=== PATIENT | female | born 2000 | race Caucasian/White ===

== ENCOUNTER → 2020-02-27 15:32 | Outpatient (CLI) | payer OTHER, SELFPAY ==
--- NOTE | ~2020-02-27 | XR_ITS ---
EXAMINATION: XR hip RT 2V w AP pelvis DATE: 02/27/2020 16:15 INDICATION: Right hip pain TECHNIQUE: Anteroposterior view of the pelvis and anteroposterior and frog-leg lateral views of the r ight hip were obtained. COMPARISON: None. FINDINGS: Alignment is normal. No fracture or suspected avascular necrosis. Normal acetabular and femoral head/ neck morphology. Joint spaces are normal. Rectangular lucency likely representing a tampon projecting over the central pelvis. Soft tissues otherwise unremarkable. IMPRESSION: 1. Normal pelvis and right hip radiographs. Reviewed, dictated and finalized at location B.
== END ==
PROVIDERS: Visit Provider Nurse Practitioner
DX: M25.551 Pain in right hip (principal)
CPT/HCPCS: 73502

== ENCOUNTER 2020-04-06 14:11 | Emergency (ER) | payer OTHER, SELFPAY ==
[2020-04-06 14:17] VITALS: BP 121/78; PULSE 65; RESP 14; TEMP 36.2; O2SAT 99
[2020-04-06 15:21] LABS: Add Urine Microscopic? YES; Appearance Urine Clear (Clear); Bacteria Urine 1+ /hpf; Bilirubin Urine Negative (Negative); Blood Urine Negative (Negative); Color Urine Yellow (Yellow); Glucose Urine UA Negative (Negative); Ketones Urine Negative (Negative); Leukocyte Esterase Ur Trace LEU/UL (Negative); Mucus Urine Few /lpf; Nitrate Urine Negative (Negative); Protein Urine 1+ mg/dL (Negative); RBC Urine 0-2 /hpf (0-2); Specific Grav Ur 1.026 (1.001-1.035); Squamous Epithelial Cell Urine Few /hpf (Few); Urobilinogen Urine Negative mg/dL (<2.0); WBC Urine 0-3 /hpf
[2020-04-06] MEDS: ONDANSETRON HCL ODT 4 MG TABLET PO (15:44)
--- NOTE | 2020-04-06 16:19 | ED.GENADULT ---
HPI - General Adult General Chief complaint: Nausea/Vomiting/Diarrhea Stated complaint: vomiting Time Seen by Provider: 04/06/20 14:26 Source: patient Mode of arrival: ambulatory Limitations: no limitations History of Present Illness HPI narrative: Patient presents with chief complaint of chronic intermittent nausea and food aversions that is being evaluated by her primary care and she is also seen gastroenterology. Patient states her testing has been back negative and so she was advised to take Zofran as needed for nausea with chills. Patient states she was staying with her boyfriend and her Zofran was taken. She saw her primary care with a negative to the office today so she came to the emergency department. Patient states she is also on antibiotics due to vaginitis by her DATA STORAGE SPECIALIST that was started yesterday after her DATA STORAGE SPECIALIST appointment. Patient denies fever, chills, or diarrhea. Related Data Home Medications Medication Instructions Recorded Confirmed albuterol sulfate 90 mcg/actuation 1 puff INHALATION Q4H PRN 04/28/19 04/06/20 aerosol inhaler montelukast 10 mg tablet 10 mg PO DAILY 04/28/19 04/06/20 Allergies Allergy/AdvReac Type Severity Reaction Status Date / Time grass pollen Allergy Unknown Rash Verified 04/06/20 14:44 Review of Systems Review of Systems: Narrative: CONSTITUTIONAL: Denies fever, chills, or sweats. EYES: Denies visual changes, redness, or discharge. ENT: Denies rhinorrhea, congestion, sore throat, or otalgia. CARDIOVASCULAR: Denies chest pain, palpitations, or edema. RESPIRATORY: Denies cough or dyspnea. GASTROINTESTINAL: Reports nausea,intermittent diffuse abdominal pain, in food aversion denies vomiting, or diarrhea. GENITOURINARY: Denies dysuria or hematuria. SKIN: Denies rash or itching. MUSCULOSKELETAL: Denies back pain, joint pain, or myalgia. NEUROLOGIC: Denies headache, numbness, dizziness, or weakness. PSYCHIATRIC: Denies anxiety or depression. [facility] Past Medical History Medical History ADHD (attention deficit hyperactivity disorder) Anxiety Social History Social History Smoking status: Light tobacco smoker Alcohol intake: current Substance use type: marijuana Gender identity (if verbalized by the patient): Female Exam Narrative: Exam Narrative: GENERAL: Well-appearing, well-nourished, and in no acute distress. HEAD: Normocephalic, atraumatic. EYES: PERRLA and EOMI. NECK: Supple. No adenopathy or masses. No carotid bruits or JVD CHEST: Clear to auscultation. No respiratory distress. No wheezes rales or rhonchi HEART: Regular rate and rhythm. No murmur heard. Normal peripheral pulses. ABDOMEN: Soft, nontender, nondistended, normal active bowel sounds. EXTREMITIES: Normal range of motion. No edema. SKIN: Warm, dry, no rash. NEURO: No focal deficits. Alert and oriented x3. PSYCH: Normal mood and affect. Course Vital Signs Vital signs: Vital Signs Temperature 97.1 F L 04/06/20 14:17 Pulse Rate 65 04/06/20 14:17 Respiratory Rate 14 04/06/20 14:17 Blood Pressure 121/78 04/06/20 14:17 Pulse Oximetry 99 04/06/20 14:17 Temperature 97.1 F L 04/06/20 14:17 Pulse Rate 101 H 04/06/20 17:15 Respiratory Rate 16 04/06/20 17:15 Blood Pressure 150/94 H 04/06/20 17:15 Pulse Oximetry 96 04/06/20 17:15 Medical Decision Making MDM Narrative Medical decision making narrative: Patient vital signs are stable. Patient states she has had an extensive work-up regarding this chronic intermittent nausea and abdominal pain has been negative. Patient states she does not feel that blood work or imaging is necessary at this time. Patient states that she will follow-up with her primary care as that is who typically manages her chronic intermittent abdominal to symptoms. Patient does not have painful abdomen on palpation. She is not having vomiting in
[2020-04-06 17:15] VITALS: BP 150/94; PULSE 101; RESP 16; O2SAT 96
--- NOTE | 2020-04-06 17:40 | PC.NURSE ---
1715 Notified pt of discharge. Pt tearful,states she is having abdominal pain but did not know how to call the nurse. States she was told by her physicians to come to the ER to get IV fluids if she is still having problems with nausea/vomiting/abd pain. Pt states vomiting x1 day. No nausea/vomiting observed in ED. Marielle Patel PAC notified of pt's complaints and came speak with the pt regarding her concerns. Pt asked on admission to ER if she would like to have repeat blood work done and asked again at this time. Pt states I just want to leave. I have been having pain and no one can figure out what is wrong with me.
== END 2020-04-06 17:20 | disposition home or self-care (01) ==
PROVIDERS: Physician Assistant; Emergency Provider Family Medicine; PCP Family Medicine
DX: R11.0 Nausea (principal); F90.9 Attention-deficit hyperactivity disorder, unspecified type; F41.9 Anxiety disorder, unspecified; F17.210 Nicotine dependence, cigarettes, uncomplicated
CPT/HCPCS: 81001; 81025; 99283; A9270

== ENCOUNTER 2020-06-05 01:35 | Outpatient (CLI) | payer OTHER, SELFPAY ==
[2020-06-06 00:20] LABS: SARS-CoV-2 RNA PCR Negative
== END 2020-06-05 01:36 | disposition home or self-care (01) ==
LOC: ANHCOVIDDT 01:35
PROVIDERS: PCP Family Medicine; Visit Provider Internal Medicine Gastroenterology
DX: Z01.812 Encounter for preprocedural laboratory examination (principal); Z20.822 Contact with and (suspected) exposure to COVID-19
CPT/HCPCS: C9803; U0003; U0005

== ENCOUNTER 2020-06-08 01:17 | Day surgery (SDC) | payer OTHER, SELFPAY ==
[2020-06-01 08:20] VITALS: BMI 18.5
[2020-06-08 09:37] VITALS: BP 122/66; PULSE 85; RESP 16; TEMP 36.6; O2SAT 100; BMI 18.8
--- NOTE | 2020-06-08 09:39 | WPDANESEPPF ---
Anes - Initial Pre Proc Eval Procedure: Operation Date: 06/08/20 10:45 Proposed Procedures p Esophagogastroduodenoscopy - Jose Gutierrez MD Date/Time: 06/08/20 09:39 Surgeon: Jose Gutierrez MD Pre Op Diagnosis: Abdominal Pain Patient Data Age: 19 Gender: F Height: 1.63 m Weight: 49 kg Allergies Allergy/AdvReac Type Severity Reaction Status Date / Time grass pollen Allergy Intermediate Rash Verified 06/08/20 09:36 Home Medications Medication Instructions Recorded Confirmed Type albuterol sulfate 90 mcg/actuation 1 puff INHALATION Q4H PRN 04/28/19 06/08/20 History aerosol inhaler montelukast 10 mg tablet 10 mg PO DAILY 04/28/19 06/08/20 History dextroamphetamine-amphetamine 20 20 mg PO DAILY #60 tablet 10/20/19 06/08/20 Rx mg tablet cetirizine 10 mg tablet 10 mg PO DAILY #30 tablet 02/24/20 06/08/20 Rx norethindrone 1 mg-ethinyl 1 tablet PO DAILY #28 tablet 03/30/20 06/08/20 Rx estradiol 20 mcg (21)-iron 75 mg (7) tablet ondansetron 4 mg PO Q8H PRN #10 tablet 04/06/20 06/08/20 Rx Patient hx anesthesia problems: none Family hx anesthesia problems: none PMFSH Past Medical History Medical History (Updated 06/08/20 @ 09:41 by Francis Tyler MD) ADHD (attention deficit hyperactivity disorder) Anxiety Asthma Dysphagia Hyperthyroidism Nausea and vomiting in adult Social History Social History Smoking status: Current every day smoker (marijuana) Alcohol intake: current Substance use type: marijuana Gender identity (if verbalized by the patient): Female Anes - Eval Final PreProcedure Day of Procedure 06/08/20 09:39 Patient weight: normal Heart: regular rate and rhythm Lungs: clear to auscultation and normal air movement Airway: Mallampati scale class II Neurological: alert and oriented Last oral intake: >/= 8 hours ASA classification: II Emergent: no Anesthetic plan: proceed Anesthesia type and monitoring: general GIVS Informed Consent: The patient's anesthetic plan and its attendant risks and benefits were discussed with the patient/family/POA. Questions were solicited and answers provided to the satisfaction of the patient/family/POA.
[2020-06-08] MEDS: LACTATED RINGERS 1,000 ML 150 ML IV CONT (09:49)
--- NOTE | 2020-06-08 10:37 | WPDHPUPDATE1 ---
History and Physical Update Update Date/Time: 06/08/20 10:37 History and Physical has been reviewed, including an updated exam of the patient. There are NO changes in the patient's condition. Risks, benefits, and alternatives have been discussed and questions answered. Patient agrees to proceed with procedure.
[2020-06-08] MEDS: BENZOCAINE (*SP) 60 ML SPRAY CAN (HURRICAINE) 1 SPRAY MUCOUS MEM (10:45)
[2020-06-08 10:53] VITALS: BP 101/46; PULSE 65; RESP 23; O2SAT 100
[2020-06-08 11:03] VITALS: BP 103/48; PULSE 61; RESP 20; O2SAT 100
[2020-06-08 11:13] VITALS: BP 111/47; PULSE 61; RESP 19; O2SAT 100
== END 2020-06-08 11:24 | disposition home or self-care (01) ==
PROVIDERS: PCP Family Medicine; Visit Provider Internal Medicine Gastroenterology
PROC: 0DJ08ZZ Inspection of Upper Intestinal Tract, Via Natural or Artificial Opening Endoscopic (ICD-10-PCS; CPT 43235; principal; 2020-06-08 10:45)
DX: K29.70 Gastritis, unspecified, without bleeding (principal); K20.80 Other esophagitis without bleeding; F90.9 Attention-deficit hyperactivity disorder, unspecified type; F41.9 Anxiety disorder, unspecified; J45.909 Unspecified asthma, uncomplicated; E05.90 Thyrotoxicosis, unspecified without thyrotoxic crisis or storm; F12.90 Cannabis use, unspecified, uncomplicated
CPT/HCPCS: 43239; 88305; J2704; J7120

== ENCOUNTER 2020-08-10 07:36 | Outpatient (CLI) | payer OTHER, SELFPAY ==
--- NOTE | ~2020-08-10 | MR_ITS ---
EXAMINATION: MR cervical spine wo con EXAM DATE: 08/10/2020 08:32 INDICATION: M54.2 - Cervicalgia. TECHNIQUE: Multi-sequential, multiplanar MR images of the cervical spine were obtained without contra st. Axial T2, axial T2 MERGE sequence. Sagittal T1, T2, T2 fat saturation images also obtained. Th ere is no prior study for comparison. FINDINGS: The vertebral bodies are aligned in the AP dimension. Vertebral body and disc heights are well-maintained. There are no suspicious marrow signal abnormalities. The spinal cord signal intensi ty and intrinsic morphology is normal. Cervicomedullary junction is normal in appearance. Paraspinal soft tissue is unremarkable. Level by level evaluation: C2-C3: Disc does not extend beyond the endplate margin. Uncovertebral joint arthropathy: None. Facet joint arthropathy: None. Neural foraminal stenosis: No stenosis. Central canal stenosis: No stenosis. C3-C4: Disc does not extend beyond the endplate margin. Uncovertebral joint arthropathy: Mild left. Facet joint arthropathy: Mild bilateral. Neural foraminal stenosis: No stenosis. Central canal stenosis: No stenosis. C4-C5: Disc does not extend beyond the endplate margin. Uncovertebral joint arthropathy: None. Facet joint arthropathy: Mild bilateral. Neural foraminal stenosis: No stenosis. Central canal stenosis: No stenosis. C5-C6: Disc does not extend beyond the endplate margin. Uncovertebral joint arthropathy: None. Facet joint arthropathy: Mild bilateral. Neural foraminal stenosis: No stenosis. Central canal stenosis: No stenosis. C6-C7: Disc does not extend beyond the endplate margin. Uncovertebral joint arthropathy: None. Facet joint arthropathy: Minimal bilateral. Neural foraminal stenosis: No stenosis. Central canal stenosis: No stenosis. C7-T1: Disc does not extend beyond the endplate margin. Uncovertebral joint arthropathy: Mild left. Facet joint arthropathy: Mild left. Neural foraminal stenosis: No stenosis. Central canal stenosis: No stenosis. IMPRESSION: 1. Mild cervical arthropathy. No stenosis. Reviewed, dictated and finalized at location A.
== END 2020-08-10 07:37 | disposition home or self-care (01) ==
PROVIDERS: PCP Family Medicine; Visit Provider Nurse Practitioner
DX: M54.2 Cervicalgia (principal)
CPT/HCPCS: 72141

== ENCOUNTER → 2020-08-18 11:48 | Outpatient (CLI) | payer OTHER, SELFPAY ==
[2020-08-19 17:57] LABS: SARS-CoV-2 RNA PCR Positive
== END ==
PROVIDERS: PCP Family Medicine; Visit Provider Nurse Practitioner
DX: U07.1 COVID-19 (principal)
CPT/HCPCS: C9803; U0003; U0005

== ENCOUNTER 2021-04-25 07:52 | Emergency (ER) | payer OTHER, SELFPAY ==
[2021-04-25 08:06] VITALS: PULSE 58; RESP 20; TEMP 36.9; O2SAT 99
[2021-04-25 09:07] VITALS: BP 109/60; PULSE 58; RESP 18; O2SAT 100
--- NOTE | 2021-04-25 10:08 | PC.NURSE ---
LET applied to left index finger.
[2021-04-25] MEDS: TETANUS,DIPHTHERIA,AC PERTUSSIS ADULT (0.5 ML) BOOSTRIX IM (10:16)
[2021-04-25] MEDS: LIDOCAINE, EPINEPHRINE, TETRACAINE VISCOUS SOLN 3 ML TOPICAL (10:18)
--- NOTE | 2021-04-25 10:22 | ED.GENADULT ---
HPI - General Adult General Chief complaint: Wound/Laceration Stated complaint: Laceration L Index finger Time Seen by Provider: 04/25/21 09:11 Source: patient Mode of arrival: ambulatory Limitations: no limitations History of Present Illness HPI narrative: Patient is 20-year-old female with chief complaint of laceration to the tip of the second left digit that she sustained while using a cottonseed meat presser. Patient states that the bleeding has stopped. Patient reports throbbing to the area. Patient states that she is not sure if she is up-to-date on tetanus. Patient denies any other injuries. Related Data Allergies Allergy/AdvReac Type Severity Reaction Status Date / Time grass pollen Allergy Intermediate Rash Verified 04/25/21 08:25 Review of Systems Review of Systems: CONSTITUTIONAL: Denies fever, chills, or sweats. EYES: Denies visual changes, redness, or discharge. ENT: Denies rhinorrhea, congestion, sore throat, or otalgia. CARDIOVASCULAR: Denies chest pain, palpitations, or edema. RESPIRATORY: Denies cough or dyspnea. GASTROINTESTINAL: Denies abdominal pain, nausea, vomiting, or diarrhea. GENITOURINARY: Denies dysuria or hematuria. SKIN: Reports laceration denies rash or itching. MUSCULOSKELETAL: Denies back pain, joint pain, or myalgia. NEUROLOGIC: Denies headache, numbness, dizziness, or weakness. PSYCHIATRIC: Denies anxiety or depression. PMFSH Past Medical History Medical History ADHD (attention deficit hyperactivity disorder) Anxiety Asthma Dysphagia Hyperthyroidism Nausea and vomiting in adult Social History Social History Smoking status: Current every day smoker (marijuana) Alcohol intake: current Substance use type: marijuana Gender identity (if verbalized by the patient): Female Exam Narrative: GENERAL: Well-appearing, well-nourished, and in no acute distress. HEAD: Normocephalic, atraumatic. EYES: PERRLA and EOMI. CHEST: Clear to auscultation. No respiratory distress. No wheezes rales or rhonchi HEART: Regular rate and rhythm. No murmur heard. Normal peripheral pulses. EXTREMITIES: Normal range of motion. No edema. SKIN: Approx 1cm laceration to the volar aspect of the left second pad. Nail not involved. Not bleeding. Well approximated without intervention. Warm, dry, no rash. NEURO: No focal deficits. Alert and oriented x3. PSYCH: Normal mood and affect. Course Vital Signs Vital signs: Vital Signs Temperature 98.5 F 04/25/21 08:06 Pulse Rate 58 L 04/25/21 08:06 Respiratory Rate 20 04/25/21 08:06 Pulse Oximetry 99 04/25/21 08:06 Temperature 98.5 F 04/25/21 08:06 Pulse Rate 58 L 04/25/21 09:07 Respiratory Rate 18 04/25/21 09:07 Blood Pressure 109/60 04/25/21 09:07 Pulse Oximetry 100 04/25/21 09:07 Medical Decision Making MDM Narrative Medical decision making narrative: Patient wound is well approximated without intervention. Patient requesting hand nerve block for pain, do not think this is appropriate as patient is not receiving suturing or mati. She refuses tylenol or ibuprofen. Agreeable to let gel to assist with pain control for thorough cleansing and dressing. Discussed wound care and follow up with PCP. Vital Signs Vital Signs: Vital Signs Temperature 98.5 F 04/25/21 08:06 Pulse Rate 58 L 04/25/21 08:06 Respiratory Rate 20 04/25/21 08:06 Pulse Oximetry 99 04/25/21 08:06 Temperature 98.5 F 04/25/21 08:06 Pulse Rate 58 L 04/25/21 09:07 Respiratory Rate 18 04/25/21 09:07 Blood Pressure 109/60 04/25/21 09:07 Pulse Oximetry 100 04/25/21 09:07 Discharge Plan Discharge Clinical Impression: Laceration Patient Disposition: Home, Self-Care Condition: Improved Instructions: Antibiotic Form, Laceration (ED) Additional Instructions: Keep areas clean. Wash with antibacterial soap and apply antibacte
== END 2021-04-25 11:00 | disposition home or self-care (01) ==
PROVIDERS: Emergency Provider Emergency Medicine; PCP Family Medicine
DX: S61.211A Laceration without foreign body of left index finger without damage to nail, initial encounter (principal); Z23 Encounter for immunization; J45.909 Unspecified asthma, uncomplicated; E05.90 Thyrotoxicosis, unspecified without thyrotoxic crisis or storm; F90.9 Attention-deficit hyperactivity disorder, unspecified type; F41.9 Anxiety disorder, unspecified; W31.89XA Contact with other specified machinery, initial encounter
CPT/HCPCS: 90471; 90715; 99282

== ENCOUNTER 2024-12-09 09:17 | Emergency (ER) | payer OTHER, SELFPAY ==
--- NOTE | 2024-12-09 09:25 | ED.ABDPAIN ---
HPI - Abdominal Pain General Chief Complaint: Abdominal Pain Stated Complaint: Abdominal Pain/Light headed Time Seen by Provider: 12/09/24 09:26 Source: patient and RN notes reviewed Mode of arrival: ambulatory Limitations: no limitations Related Data Allergies Allergy/AdvReac Type Severity Reaction Status Date / Time grass pollen Allergy Intermediate Rash Verified 04/25/21 08:25 Review of Systems Review of Systems: CONSTITUTIONAL: Denies malaise, chills, sweats, or fever. ENT: Denies rhinorrhea, congestion, sinus pain, otalgia or sore throat. CARDIOVASCULAR: Denies chest pain, palpitations, or edema. RESPIRATORY: Denies cough or dyspnea. GASTROINTESTINAL: Denies abdominal pain, nausea, vomiting, diarrhea, bloody, or mucous stools. GENITOURINARY: Denies dysuria or hematuria. MUSCULOSKELETAL: Denies myalgia. NEUROLOGIC: Denies headache. All systems reviewed & are unremarkable except as noted in HPI and below PMFSH Past Medical History Medical History ADHD (attention deficit hyperactivity disorder) Anxiety Asthma Dysphagia Hyperthyroidism Nausea and vomiting in adult Social History Social History Smoking status: Current every day smoker (marijuana) Alcohol intake: current Substance use type: marijuana Gender identity (if verbalized by the patient): Female Comments At time of signature, agree with nursing past medical, surgical, social and family history. There is no relevant family history pertinent to the presenting complaint Exam Narrative: GENERAL: Well-appearing, well-nourished, and in no acute distress. HEAD: Normocephalic, atraumatic. EYES: PERRLA, conjunctivae clear, and EOMI. ENT: Nares clear, turbinates pink, no rhinorrhea or epistaxis. Mucous membranes moist. Oropharynx without edema, erythema, or lesions. Tonsils not enlarged and without exudate. NECK: Supple. No lymphadenopathy CHEST: Speaks in full sentences. No respiratory distress. HEART: Regular rate and rhythm. ABDOMEN: Soft, flat, nondistended, nontender. No guarding, rebound tenderness, or rigidity. No pulsatile masses. Bowel sounds present in all four quadrants. No organomegaly. Negative Burch?s sign. No periumbilical tenderness. No Supra public tenderness or distension. Good femoral pulses bilaterally. No hernia noted. No scars or surface trauma. SKIN: Warm, dry, no rash. NEURO: Alert and oriented x3. PSYCH: Normal mood and affect Course Course Emergency Course: Patient is aware of diagnosis, understands and agrees to treatment plan. Anticipatory guidance given. Patient agrees to follow-up as directed and is aware of reasons to seek care at the emergency department. Portions of this record may have been created with voice recognition software Level of Care: Express Care Visit Vital Signs Vital signs: Vital Signs Temperature 37.2 C 12/09/24 09:27 Pulse Rate 77 12/09/24 09:27 Respiratory Rate 18 12/09/24 09:27 Blood Pressure 128/93 H 12/09/24 09:27 Pulse Oximetry 100 12/09/24 09:27 Temperature 37.2 C 12/09/24 09:27 Pulse Rate 77 12/09/24 09:27 Respiratory Rate 18 12/09/24 09:27 Blood Pressure 128/93 H 12/09/24 09:27 Pulse Oximetry 100 12/09/24 09:27 Reviewed. Critical Care Time Critical Care Time Critical Care Time: No Discharge Plan Discharge Patient Language: Ghanaian Prescriptions: No Action dextroamphetamine-amphetamine [Adderall] 20 mg tablet 20 mg PO DAILY Qty: 60 0RF Patient Comments: takes on days she works Rx Instructions: Take 1 tablet by mouth everyday with breakfast may repeat 1/2 to 1 tablet at noon. albuterol sulfate [ProAir HFA] 90 mcg/actuation HFA aerosol inhaler 1 puff INHALATION Q4H PRN (Reason: Shortness Of Breath Or Wheezing) Qty: 8.5 0RF escitalopram oxalate [Lexapro] 10 mg tablet 10 mg PO DAILY Qty: 90 0RF montelukast [Singulair] 10 mg tablet 10 mg PO DAILY Qty: 90 0RF omeprazole 20 mg capsule,delayed release(DR/EC) 20 mg PO DAILY Qty: 90 0RF ondansetron 4 mg tablet,disintegrating 4 mg PO Q8H PRN (Reason: nausea and vomiting) Qty: 30 0RF cetirizine [Zyrtec] 10 mg tablet 10 mg PO DAILY Qty: 90 0RF Follow-up/Referrals: PHYSICIAN,TELEGRAPH OFFICE TELEPHONE CLERK [Primary Care Provider] -
[2024-12-09 09:27] VITALS: BP 128/93; PULSE 77; RESP 18; TEMP 37.2; O2SAT 100
--- NOTE | 2024-12-09 09:30 | ED.ABDPAIN ---
HPI - Abdominal Pain General Chief Complaint: Abdominal Pain Stated Complaint: Abdominal Pain/Light headed Time Seen by Provider: 12/09/24 09:26 Source: patient and RN notes reviewed Mode of arrival: ambulatory Limitations: no limitations History of Present Illness HPI narrative: 24-year-old female presents with concern for abdominal pain. She reports she started having abdominal pain, nausea and vomiting on Sunday. She had 5 episodes of vomiting. Since then she has been nauseated but has not vomited. She denies diarrhea or constipation, she had a normal bowel movement yesterday. Reports her menstrual period is due soon, she is not concern for . She denies frequency, dysuria, flank pain, strong smelling urine. She reports chronic urinary urgency. She reports chronic abdominal problems since she was a teenager she has had multiple workups and was diagnosed with gastritis in the past. She reports she did not have insurance for a long time so she was not able to take any medications. She reports the pain is colicky, it at its best and 8 at its worst. Is unable to pinpoint a specific origin of pain. She has not taken any medications for her symptoms. MD elicited complaint: abdominal pain Related Data Allergies Allergy/AdvReac Type Severity Reaction Status Date / Time grass pollen Allergy Intermediate Rash Verified 12/09/24 09:33 Review of Systems Review of Systems: CONSTITUTIONAL: Denies malaise, chills, sweats, or fever. ENT: Denies rhinorrhea, congestion, sinus pain, otalgia or sore throat. CARDIOVASCULAR: Denies chest pain, palpitations, or edema. RESPIRATORY: Denies cough or dyspnea. GASTROINTESTINAL: Reports intermittent abdominal pain, nausea. Reports vomiting on Sunday. Denies constipation, diarrhea, bloody, or mucous stools. GENITOURINARY: Denies dysuria, frequency, or hematuria. MUSCULOSKELETAL: Denies myalgia. NEUROLOGIC: Denies headache. All systems reviewed & are unremarkable except as noted in HPI and below PMFSH Past Medical History Medical History ADHD (attention deficit hyperactivity disorder) Anxiety Asthma Dysphagia Hyperthyroidism Nausea and vomiting in adult Social History Social History Smoking status: Current every day smoker (marijuana) Alcohol intake: current Substance use type: marijuana Gender identity (if verbalized by the patient): Female Comments At time of signature, agree with nursing past medical, surgical, social and family history. There is no relevant family history pertinent to the presenting complaint Exam Narrative: GENERAL: Well-appearing, well-nourished, and in no acute distress. HEAD: Normocephalic, atraumatic. EYES: PERRLA, conjunctivae clear, and EOMI. ENT: Nares clear, no rhinorrhea or epistaxis. Mucous membranes moist. NECK: Supple. No lymphadenopathy CHEST: Speaks in full sentences. No respiratory distress. HEART: Regular rate and rhythm. ABDOMEN: Soft, flat, nondistended, nontender. No guarding, rebound tenderness, or rigidity. No pulsatile masses. Bowel sounds present in all four quadrants. No organomegaly. Negative Burch?s sign. No periumbilical tenderness. No Supra public tenderness or distension. No scars or surface trauma. SKIN: Warm, dry, no rash. NEURO: Alert and oriented x3. PSYCH: Normal mood and affect Course Course Emergency Course: I offered patient transferred to the emergency room for further evaluation, she at this time would prefer to And monitor her symptoms. She understands reasons to go to the emergency room for symptoms worsen. Anticipatory guidance given. Patient agrees to follow-up as directed and is aware of reasons to seek care at the emergency department. Portions of this record may have been created with voice recognition software Level of Care: Express Care Visit Vital Signs Vital signs: Vital Signs Temperature 99 F 12/09/24 09:27 Pulse Rate 77 12/09/24 09:27 Respiratory Rate 18 12/09/24 09:27 Blood Pressure 128/93 H 12/09/24 09:27 Pulse Oximetry 100 12/09/24 09:27 Temperature 99 F 12/09/24 09:27 Pulse Rate 77 12/09/24 09:27 Respiratory Rate 18 12/09/24 09:27 Blood Pressure 128/93 H 12/09/24 09:27 Pulse Oximetry 100 12/09/24 09:27 Reviewed. MDM - Abdominal Pain MDM Narrative Medical decision making narrative: No evidence of pancreatitis, AAA, mesenteric ischemia, small bowel obstruction, colitis, appendicitis, or pelvic etiology such as ovarian, TOA, or ectopic . Patient has no history of peptic ulcer, H. pylori, chronic aspirin NSAID or corticosteroid use, chronic alcohol use, no history of inflammatory bowel disease, no history of active abdominal infection or malignancy. Patient has no history of hernia or intra-abdominal surgeries, patient denies absence of flatus, constipation, melena, hematemesis. Patient denies post-prandial pain. No pain-out of proportion. Exam findings show no acute concerns or changes; patient is non-toxic appearing and is in no distress. Patient is appropriate for outpatient treatment and follow-up. Differential Diagnosis Differential diagnosis: Likely abdominal pain, acute appendicitis, constipation, diverticulitis, gastroenteritis, pancreatitis and small bowel obstruction Critical Care Time Critical Care Time Critical Care Time: No Discharge Plan Discharge Clinical Impression: Abdominal pain Qualifiers: Abdominal location: generalized Qualified Code(s): R10.84 - Generalized abdominal pain Patient Disposition: Home Condition: Stable Instructions: Abdominal Pain (ED) Additional Instructions: 1) Please follow-up with gastroenterology for further evaluation. 2) If you have any worsening of symptoms or any other urgent concerns please go to the ER. 3) Please take medications as prescribed and continue taking your home medications as usual. 4) Please read and follow information included in discharge instructions. Patient Language: Thai Prescriptions: New ondansetron 4 mg tablet,disintegrating 4 mg PO Q8H PRN (Reason: nausea and vomiting) Qty: 10 0RF dicyclomine 10 mg capsule 10 mg PO BID Qty: 10 0RF No Action dextroamphetamine-amphetamine [Adderall] 20 mg tablet 20 mg PO DAILY Qty: 60 0RF Patient Comments: takes on days she works Rx Instructions: Take 1 tablet by mouth everyday with breakfast may repeat 1/2 to 1 tablet at noon. albuterol sulfate [ProAir HFA] 90 mcg/actuation HFA aerosol inhaler 1 puff INHALATION Q4H PRN (Reason: Shortness Of Breath Or Wheezing) Qty: 8.5 0RF escitalopram oxalate [Lexapro] 10 mg tablet 10 mg PO DAILY Qty: 90 0RF montelukast [Singulair] 10 mg tablet 10 mg PO DAILY Qty: 90 0RF omeprazole 20 mg capsule,delayed release(DR/EC) 20 mg PO DAILY Qty: 90 0RF Follow-up/Referrals: PHYSICIAN,[employer]W[facility] [Primary Care Provider] - Stand Alone Forms: Work/School Release IP Time of Disposition: 10:01
[2024-12-09 09:59] LABS: EDUAAPPEAR Clear; EDUABILI Negative (Negative); EDUABLOOD Negative (Negative); EDUACOLOR1 Yellow; EDUAGLUCOSE Negative (Negative); EDUAKETONE Negative (Negative); EDUALEUKO Negative (Negative); EDUANITRATE Negative (Negative); EDUAPH 6.5; EDUAPROTEIN Negative (Negative); EDUASPGRAVITY 1.020; EDUAUROBILI 0.2
== END 2024-12-09 10:04 | disposition home or self-care (01) ==
PROVIDERS: Emergency Provider Nurse Practitioner
DX: R10.84 Generalized abdominal pain (principal); F12.90 Cannabis use, unspecified, uncomplicated; J45.909 Unspecified asthma, uncomplicated; E05.90 Thyrotoxicosis, unspecified without thyrotoxic crisis or storm; F90.9 Attention-deficit hyperactivity disorder, unspecified type; F41.9 Anxiety disorder, unspecified
CPT/HCPCS: 81003; 99213; G0463

== ENCOUNTER 2025-01-08 11:42 | Outpatient (CLI) | payer OTHER, SELFPAY ==
[2025-01-08 12:08] LABS: Hematocrit 40.5 % (37.0-47.0); Hemoglobin 13.1 g/dL (12.0-15.0); Mean Corpuscular HGB Conc 32.3 g/dl (32-36); Mean Corpuscular Hemoglobin 27.3 pg (26-34); Mean Corpuscular Volume 84.6 fl (80-100); Platelet Count Result 236 k/mm3 (150-375); Red Blood Count 4.79 M/mm3 (4.2-5.4); White Blood Count 5.3 K/mm3 (4.5-10.0)
[2025-01-08 12:27] LABS: Alanine Aminotransferase 21 U/L (6-35); Albumin Level 4.5 g/dL (3.5-5.1); Alkaline Phosphatase 47 U/L (38-126); Anion Gap 10 mmol/L (4-12); Aspartate Amino Transferase 28 U/L (14-36); Bilirubin,Total 0.6 mg/dL (0.2-1.3); Blood Urea Nitrogen 13 mg/dL (7-17); Calcium 9.2 mg/dL (8.4-10.2); Carbon Dioxide 24 mmol/L (22-30); Chloride 105 mmol/L (98-107); Estimated Glomerular Filt Rate > 60; Glucose 88 mg/dL (65-110); Lipase 41 U/L (23-300); Potassium 4.6 mmol/L (3.4-5.0); Sodium 139 mmol/L (137-145); Total Protein 7.6 g/dL (6.3-8.2)
== END 2025-01-08 11:43 | disposition home or self-care (01) ==
LOC: ANHLAB 11:44
PROVIDERS: Visit Provider Nurse Practitioner Family
DX: R10.84 Generalized abdominal pain (principal); R11.2 Nausea with vomiting, unspecified
CPT/HCPCS: 36415; 80053; 83690; 85027

== ENCOUNTER 2025-01-16 08:27 | Outpatient (CLI) | payer OTHER, SELFPAY ==
--- NOTE | ~2025-01-16 | US_ITS ---
Examination: US abdomen complete Clinical History: R10.84 - Generalized abdominal pain . Comparison: None Technique: Complete abdominal sonography Findings: Liver: Normal size. Normal echotexture. No intrahepatic biliary ductal dilatation. Normal hepatopedal flow in the portal vein. Common duct: Normal caliber, 4 mm. Gallbladder: No stones. No wall thickening. No pericholecystic fluid. Spleen: Unremarkable. Pancreas: Unremarkable. Kidneys: Unremarkable. Aorta: No aneurysmal dilatation. Retrohepatic IVC: Unremarkable. IMPRESSION: 1. No acute findings. Reviewed, dictated and finalized at location R. IMPRESSION: 1. No acute findings.
== END 2025-01-16 08:28 | disposition home or self-care (01) ==
LOC: GOSHIMG 08:28
PROVIDERS: PCP Nurse Practitioner Family; Visit Provider Nurse Practitioner Family
DX: R10.84 Generalized abdominal pain (principal); R11.2 Nausea with vomiting, unspecified
CPT/HCPCS: 76700

== ENCOUNTER 2025-03-27 11:52 | Outpatient (CLI) | payer OTHER, SELFPAY ==
--- OUTSIDE RECORDS SUMMARY | 2025-03-27 16:46 | XMS_ITS | Data Portability ---
Author Organization [facility] Address [address] [place] [address] Assessment No assessment recorded. Plan of Treatment Reminders Order Date Submit Date Provider Last Modified By Organization Details Last Modified Time Details Appointments None recorded. Lab None recorded. Referral None recorded. Procedures None recorded. Surgeries None recorded. Imaging None recorded. Medication Orders azithromyc in 500 mg tablet 2019 ATHENAFAX Not available 0 16:25:34 Flagyl 500 mg tablet 2019 ATHENAFAX Not available 0 16:30:58 Diflucan 200 mg tablet 2019 ATHENAFAX Not available 0 16:30:58 Patient TargetsNo targets recorded. Patient InstructionsNo instructions recorded. Reason for Referral None Reported. Results Created Date Observation Date Name Description Value Unit Range Abnormal Flag Note LastModifiedBy Organization Detail LastModifiedTime 04/05/20 20 04/06/2020 bacte rial vagin osis + vagin itis panel , vagin al trichomonas vaginalis, aptima (panther) NOT DETECT ED normal Trich omona s vagin loly: DNA testi ng perfo rmed by Trans cript ion Media heladio Ampli ficat ion (TMA) These resul ts shoul d be inter prete d in light of all clini neda and labor atory findi ngs. This assay is highl y accur ate, but rare false posit mau and negat mau resul ts may occur . Posit mau resul ts in low preva lence popul ation s may requi re re-ev aluat ion. A negat mau resul t does not precl ude a possi ble infec tion due to a speci men inade quacy or sampl ing error . Test perfo rmed by [employer] [facility] [employer], d/b/a [facility] roucrissy, [address], [facility] [place] [address] , Dee Dee Tom ra, DO, Labor atory Direc tor. Gardn erell a vagin loly, Marly da speci es: Genom ic DNA is isola heladio from patie nt speci mens by stand velia labor atory techn iques and gosia zed using custo m OpenA rray plate s, perfo rmed on the IMRSVi o 12K Flex Real Time PCR syste m. A posit mau resul t is provi ded for patho genic bacte suhail, virus and/o r funga l speci es based on detec tion of ampli ficat ion produ cts. Laisha l vagin al davonte resul ts of Laisha l or Convent heladio are deter mined by calcu latin g the ratio of the organ ism to the total bacte suhail prese nt in the speci men, and truman ring that ratio to a PathG roup patie nt popul ation . Overa ll resul ts of Laisha l, Borde rline and Abnor mal are deter mined using a proba bilit y model which was devel oped by an exten sive gosia sis and integ ratio n of clini neda thres holds for marke r organ isms on a large set of sympt omati c & asymp tomat ic speci mens. Patie nt popul ation s with diffe rent demog raphi cs from the PathG roup model popul ation may have diffe rent indic ator organ isms with diffe rent relat mau ratio s, which would influ ence the final resul ts. Resul ts shoul d be inter prete d in the rosana xt of all clini neda and labor atory findi ngs. The test was devel oped and its perfo rmanc e bryan cteri stics deter mined by [employer] [facility] d/b/a PathG rou. It has not been clear ed or appro lissa by the U.S. Food and Drug Admin istra tion. The FDA has deter mined that such clear ance or appro mitch is not neces joni. Perti nent refer ence inter vals are avail able from the labor atory on reque st. Test( s) perfo rmed by [facility] [facility], [employer], d/b/a Path rou, [address], [place] [address] , Dee Dee Tom ra, DO, Labor atory Direc tor. Not Available [facility] ([facility]) [address], [place], [address], 04/07/2020 16:53:22 04/05/20 20 04/07/2020 bacte rial vagin osis + vagin itis panel , vagin al rustam sp. Not Detect ed normal Trich omona s vagin loly: DNA testi ng perfo rmed by Trans cript ion Media heladio Ampli ficat ion (TMA) These resul ts shoul d be inter prete d in light of all clini neda and labor atory findi ngs. This assay is highl y accur ate, but rare false posit mau and negat mau resul ts may occur . Posit mau resul ts in low preva lence popul ation s may requi re re-ev aluat ion. A negat mau resul t does not precl ude a possi ble infec tion due to a speci men inade quacy or sampl ing error . Test perfo rmed by [employer], [employer], d/b/a PathG roup, [address], [place] [address] , Dee Dee Tom ra, DO, Labor atory Direc tor. Morgan diaz a vagin loly, Marly da speci es: Genom ic DNA is isola heladio from patie nt speci mens by stand velia labor atory techn iques and gosia zed using custo m OpenA rray plate s, perfo rmed on the Quant Studi o 12K Flex Real Time PCR syste m. A posit mau resul t is provi ded for patho genic bacte suhail, virus and/o r funga l speci es based on detec tion of ampli ficat ion produ cts. Laisha l vagin al davonte resul ts of Laisha l or Convent heladio are deter mined by calcu latin g the ratio of the organ ism to the total bacte suhail prese nt in the speci men, and truman ring that ratio to a PathG roup patie nt popul ation . Overa ll resul ts of Laisha l, Borde rline and Abnor mal are deter mined using a proba bilit y model which was devel oped by an exten sive gosia sis and integ ratio n of clini neda thres holds for marke r organ isms on a large set of sympt omati c & asymp tomat ic speci mens. Patie nt popul ation s with diffe rent demog raphi cs from the PathG roup model popul ation may have diffe rent indic ator organ isms with diffe rent relat mau ratio s, which would influ ence the final resul ts. Resul ts shoul d be inter prete d in the rosana xt of all clini neda and labor atory findi ngs. The test was devel oped and its perfo rmanc e bryan cteri stics deter mined by [employer] d/b/a [facility] roucrissy. It has not been clear ed or appro lissa by the U.S. Food and Drug Admin istra tion. The FDA has deter mined that such clear ance or appro mitch is not neces joni. Perti nent refer ence inter vals are avail able from the labor atory on reque st. Test( s) perfo rmed by [employer] [facility], [employer], d/b/a PathG roup, [address], [place] [address] , Dee Dee Tom ra, DO, Labor atory Direc tor. Not Available [facility] ([facility]) [address], [place], [address], 04/07/2020 16:53:22 04/05/20 20 04/07/2020 bacte rial vagin osis + vagin itis panel , vagin al gardnerella vaginalis Not Detect ed normal Trich omona s vagin loly: DNA testi ng perfo rmed by Trans cript ion Media heladio Ampli ficat ion (TMA) These resul ts shoul d be inter prete d in light of all clini neda and labor atory findi ngs. This assay is highl y accur ate, but rare false posit mau and negat mau resul ts may occur . Posit mau resul ts in low preva lence popul ation s may requi re re-ev aluat ion. A negat mau resul t does not precl ude a possi ble infec tion due to a speci men inade quacy or sampl ing error . Test perfo rmed by [facility], d/b/a PathG rou, [address], [place] [address] , Dee Dee Tom ra, DO, Labor atory Direc tor. Gardn erell a vagin loly, Marly da speci es: Genom ic DNA is isola heladio from patie nt speci mens by stand velia labor atory techn iques and gosia zed using custo m OpenA rray plate s, perfo rmed on the Quant Studi o 12K Flex Real Time PCR syste m. A posit mau resul t is provi ded for patho genic bacte suhail, virus and/o r funga l speci es based on detec tion of ampli ficat ion produ cts. Laisha l vagin al davonte resul ts of Laisha l or Convent heladio are deter mined by calcu latin g the ratio of the organ ism to the total bacte suhail prese nt in the speci men, and truman ring that ratio to a PathG roup patie nt popul ation . Overa ll resul ts of Laisha l, Borde rline and Abnor mal are deter mined using a proba bilit y model which was devel oped by an exten sive gosia sis and integ ratio n of clini neda thres holds for marke r organ isms on a large set of sympt omati c & asymp tomat ic speci mens. Patie nt popul ation s with diffe rent demog raphi cs from the PathG roup model popul ation may have diffe rent indic ator organ isms with diffe rent relat mau ratio s, which would influ ence the final resul ts. Resul ts shoul d be inter prete d in the rosana xt of all clini neda and labor atory findi ngs. The test was devel oped and its perfo rmanc e bryan cteri stics deter mined by [employer], [employer] d/b/a [facility]. It has not been clear ed or appro lissa by the U.S. Food and Drug Admin istra tion. The FDA has deter mined that such clear ance or appro mitch is not neces joni. Perti nent refer ence inter vals are avail able from the Flux atory on reque st. Test( s) perfo rmed by [employer], [employer], d/b/a [facility], [address], [place] [address] , Dee Dee Tom ra, DO, Labor atory Dire tor. Not Available [facility] ([facility]) [address] [facility] [address], [place], [address], 04/07/2020 16:53:22 04/05/20 20 04/06/2020 neiss eria gonor rhoea e, cultu re, unspe cifie d speci men neisseria gonorrhoeae, aptima NOT DETECT ED normal DNA testi ng perfo rmed by Trans cript ion Media heladio Ampli ficat ion (TMA) These resul ts shoul d be inter prete d in light of all clini neda and labor atory findi ngs. This assay is highl y accur ate, but rare false posit mau and negat mau resul ts may occur . Posit mau resul ts in low preva lence popul ation s may requi re re-ev aluat ion. A negat mau resul t does not precl ude a possi ble infec tion due to a speci men inade quacy or sampl ing error . Test perfo rmed by [employer] [facility]ated [facility]o logis [employer], [employer], d/b/a PathG roup, [address], [place] [address] , Dee Dee Tom ra, , Labor atory Direc tor. Not Available [facility] ([facility]) [facility], [place], [address], 04/07/2020 16:53:22 04/05/20 20 04/06/2020 CT, DNA, qual, PCR, unspe cifie d speci men chlamydia trachomatis, aptima NOT DETECT ED normal DNA testi ng perfo rmed by Trans cript ion Media heladio Ampli ficat ion (TMA) These resul ts shoul d be inter prete d in light of all clini neda and labor atory findi ngs. This assay is highl y accur ate, but rare false posit mau and negat mau resul ts may occur . Posit mau resul ts in low preva lence popul ation s may requi re re-ev aluat ion. A negat mau resul t does not precl ude a possi ble infec tion due to a speci men inade quacy or sampl ing error . Test perfo rmed by [employer] Patho logis [employer], [employer], d/b/a PathG roup, [address], [place] [address] , Dee Dee Tom ra, , Labor atory Direc tor. Not Available e Lab ([facility]) [facility], [place], [address], 04/07/2020 16:53:23 Result Notes None recorded. Problems Name Problem SNOMED Code Status Onset Date Resolution Date Notes Provider Name and Address Organization Details Recorded Time Cyst of ovary Active 2018 Ovarian cyst;Recor ded Elsewhere: No Locatio n: [facility] rce: EHR Chroni c: N Practice ID: [id number] Billa ble Time: 11:00:00 AM Not Available [facility] 0 16:14:33 Pelvic and perineal pain 349060161 Active 2018 Pelvic and perineal pain;Recor ded Elsewhere: No Locatio n: [facility] rce: EHR Chroni c: N Practice ID: [id number] Billa ble Time: 03:30:00 PM Not Available [facility] 0 16:14:33 Problem Notes None recorded. Medical Equipment None Reported. Allergies Allergen ID Allergen Name Allergen Category Reaction Reaction Severity Criticality Documentation Date Start Date Code Code System Note Provider Name and Address Organization Details Recorded Time 78302 grass pollen environme nt,medica tion Not available Not available Not available 04/30/2020 Comme nt: [facility]; Not Available [facility] 0 14:24:36 Medications Name Sig Start Date Stop Date Status Note LastModified by Organization Details LastModified Time Singulair 10 mg tablet take 1 tablet by oral route every day in the evening active Prescrib ed Elsewher e: Yes Loca tion: Dustin poli [facility] odify By: jered bee Encoun ter DateTime : 02/22/20 11:00:00 AM Not Available Not Available Not Available Loestrin Fe 06/02 (28-Day) 1 mg-20 mcg (21)/75 mg (7) tablet take 1 tablet by oral route every day 2019 active Prescrib ed Elsewher e: No Locat ion: Katherin rey [facility] odify By: bchappel l Encoun ter DateTime : 08/11/19 20 03:28:01 PM Not Available Not Available Not Available Adderall 5 mg tablet take 1 tablet by oral route 2 times every day before breakfas t and at noon active Prescrib ed Elsewher e: Yes Loca tion: Katherin rey [facility] odify By: jered z Eagle ter DateTime : 02/22/20 19 11:00:00 AM Not Available Not Available Not Available Zyrtec 10 mg tablet take 1 tablet by oral route every day active Prescrib ed Elsewher e: Yes Loca tion: Katherin [facility] M odelidia By: cmschult z Encoun ter DateTime : 02/22/20 11:00:00 AM Not Available Not Available Not Available Flagyl 500 mg tablet Take 1 tablet twice a day by oral route for 7 days. 2019 active Not Available Not Available Not Avai lable Diflucan 200 mg tablet Take 1 tablet on days 1, 4 & 7 for total of 3 doses. 2019 active Not Available Not Available Not Avai lable azithromy bc 500 mg tablet Take 2 tablets every day by oral route for 1 day. 2019 active Not Available Not Available Not Avai lable Zofran 04/05 completed Not Available Not Available Not Available albuterol sulfate active Not Available Not Available Not Available Singulair active Not Available Not Angelica ilable Not Available Zyrtec active Not Available Not Availa ble Not Available Adderall active Not Available Not Avai lable Not Available Vitals Date Recorded Body height Body mass index (BMI) [Percentile] Per age and sex Body mass index (BMI) Body weight Systolic And Diastolic Provider Name and Address Organization Details Last Updated DateTime 04/05/2020 162.56 cm 24 % 19.7 kg/m2 26605.1 2 g 112/75 mm[Hg] Thu Norris [facility] 0 15:39:13 Social History None recorded. Functional Status None recorded. Mental Status None recorded. Family History Nothing Reported Notes:Father: Hypertension M aternal aunt: ovarian cyst Maternal grandmother: psychiatric disease Mother: ovarian cyst, psychiatric disease, Asthma Paternal aunt: ovarian cyst Sister: Asthma Medical History No medical history recorded. Gynecological History Statement/Question Response Current Control Method BCPs Date of LMP 03/20/2020 Obstetrics History GPAL:G 0 P 0 0 0 0 Past Encounters Encounter ID Performer Location Encounter Start Date Encounter Closed Date Diagnosis/Indication Diagnosis SNOMED-CT Code Diagnosis ICD10 Code Diagnosis IMO Codes Diagnosis Note [id number] MAMADOU [facility] [address] [address] 04/05/2020 15:27:29 04/05/2020 17:10:21 Pain in pelvis 50052086 R10.2 Suspect STD/vagina l-pelvic infection component on exam today. We will treat for CH/Trich/Y east/BV today. Will await results to see if further treatment is necessary. If treated & no improvemen t then will rec TVUS as next steps. Patient is to contact office or go to nearest ED/Urgent care if fever >/= 100.1, pain, excessive bleeding, unusual drainage or swelling in area of concern; or experienci ng worsening sx's or new onset of concerning sx's. Understand ing verbalized . All questions answered to patient satisfacti on. Time spent in visit is a total of 15 mins with at least 50% of visit consisting of counseling and review of plan of care. Health Concerns Section Related Observation LastModified by Organization Detai ls LastModified Time None Recorded Concern Status LastModified by Organization Details LastModified Time None Recorded Advance Directives Directive None Recorded Payers Insurance Date Sequence Insurance Name Policy Number Policy Rodriguez Covered Member ID Rodriguez Member ID Guarantor Name 04/05/2020 1 [facility] - [facility] Kenan Dave [id number] oJse Dave 04/05/2020 SLIDING FEE SCHEDULE - DISCOUNT Jadenaldojohnathan Dave Notes Date Note Type Note Provider Name and Address Organization Details Recorded Time 04/05/2020 text/html Beer-Pelvic PainReported by PatientPatient is a 19yo white female here today with complaints of dyspareunia with penetration & without penetration for the last few weeks. Now has developed read to yellow vag d/c with pelvic pain. New partner of 2mos. On OCP's. Neg itching/irrittion of vulva/vag +odor +pelvic pain Neg AUB Neg Urinary sx's Neg GI issues. Neg N/V/F/D/CROS as noted in the HPI Katie Roman, [place]- [address], [place], [address], [place] [facility] 04/05/2020 16:48:54 OBGyn Episode No OBEpisode recorded.
[2025-03-30 15:09] LABS: Deamidated Gliadin Abs, IgA 4 units (0-19); Deamidated Gliadin Abs, IgG <1 units (0-19); Immunoglobulin A, Qn 180 mg/dL (87-352)
== END 2025-03-27 11:53 | disposition home or self-care (01) ==
LOC: ANHLAB 11:53
PROVIDERS: Visit Provider Nurse Practitioner Family
DX: R14.0 Abdominal distension (gaseous) (principal); R10.84 Generalized abdominal pain
CPT/HCPCS: 82784; 86231; 86258

== ENCOUNTER 2025-04-13 10:47 | Outpatient (CLI) | payer OTHER, SELFPAY ==
[2025-04-15 23:07] LABS: Calprotectin, Fecal 11 ug/g (0-120)
== END 2025-04-13 10:48 | disposition home or self-care (01) ==
LOC: ANHLAB 10:48
PROVIDERS: Visit Provider Nurse Practitioner Family
DX: R19.4 Change in bowel habit (principal); R14.0 Abdominal distension (gaseous); R11.2 Nausea with vomiting, unspecified
CPT/HCPCS: 83993; 87338